=== PATIENT | male | born 1965 | race Caucasian/White ===

== ENCOUNTER 2017-08-10 11:42 | Observation (INO) | payer BC ==
[2017-08-10] VITALS (11 sets, daily range): BP systolic 138–176; BP diastolic 80–99; PULSE 52–78; RESP 16–20; TEMP 97.6–98.1; O2SAT 97–99
--- NOTE | 2017-08-10 11:59 | PD ---
HPI Chief Complaint: Chest Pain Time Seen by Provider: 11:59 Travel History International Travel<30 days: No Contact w/Intl Traveler<30days: No Traveled to known affect area: No History of Present Illness HPI 52-year-old male came to the emergency room with history of sudden onset chest pain on the right side at 8 in the morning. Pain is nonradiating and more like a pressure kind of sensation. Currently it is 3 out of 10. Patient has never had this kind of pain in the past. He seems anxious and says that when the pain did not subside he decided to come to the emergency room. History of shortness of breath or syncopal episode. Patient is not a smoker. However his father of heart attack at the age of 50 which is worrying the patient a lot. He has not had a stress test ever in the past. No aggravating or relieving factors identified. [facility] Past Medical History Narrative Medical list of his past medical, surgical, social and family history is reviewed from the nursing note. Social History Tobacco Use: Yes Allergies-Medications (Allergen,Severity, Reaction): Coded Allergies: No Known Allergies (Unverified , 08/10/17) Comments No known drug allergies. Reported Meds & Prescriptions Reported Meds & Active Scripts Active No Active Prescriptions or Reported Medications Narrative Medication Awaiting for the nurse to admit reconciliation. Review of Systems Except as stated in HPI: all other systems reviewed are Neg Physical Exam Narrative GENERAL: Awake, alert, anxious, mild distress SKIN: Focused skin assessment warm/dry. HEAD: Atraumatic. Normocephalic. EYES: Pupils equal and round. No scleral icterus. No injection or drainage. ENT: No nasal bleeding or discharge. Mucous membranes pink and moist. NECK: Trachea midline. No JVD. CARDIOVASCULAR: Regular rate and rhythm. No murmur appreciated. RESPIRATORY: No accessory muscle use. Clear to auscultation. Breath sounds equal bilaterally. GASTROINTESTINAL: Abdomen soft, non-tender, nondistended. Hepatic and splenic margins not palpable. MUSCULOSKELETAL: No obvious deformities. No clubbing. No cyanosis. No edema. NEUROLOGICAL: Awake and alert. No obvious cranial nerve deficits. Motor grossly within normal limits. Normal speech. PSYCHIATRIC: Appropriate mood and affect; insight and judgment normal. Data Data Last Documented VS Vital Signs Date Time Temp Pulse Resp B/P (MAP) Pulse Ox O2 Delivery O2 Flow Rate FiO2 08/10/17 13:30 74 138/82 (100) 97 08/10/17 12:45 16 08/10/17 12:02 Room Air 08/10/17 11:45 98.1 Orders Orders Electrocardiogram (08/10/17 11:59) Basic Metabolic Panel (Bmp) (08/10/17 11:59) Ckmb (Isoenzyme) Profile (08/10/17 11:59) Complete Blood Count With Diff (08/10/17 11:59) Magnesium (Mg) (08/10/17 11:59) Prothrombin Time / Inr (Pt) (08/10/17 11:59) Act Partial Throm Time (Ptt) (08/10/17 11:59) Troponin I (08/10/17 11:59) Chest, Single Ap (08/10/17 11:59) Ecg Monitoring (08/10/17 11:59) Bilateral Bp Monitoring (08/10/17 11:59) Iv Access Insert/Monitor (08/10/17 11:59) Oximetry (08/10/17 11:59) Oxygen Administration (08/10/17 11:59) Alprazolam (Xanax) (08/10/17 12:15) Nitroglycerin Sl (Nitrostat Sl) (08/10/17 12:15) D-Dimer (08/10/17 12:00) Aspirin Chew (Aspirin Chew) (08/10/17 12:30) CKMB (08/10/17 12:00) CKMB% (08/10/17 12:00) Admit Order (Ed Use Only) (08/10/17 13:34) Labs Laboratory Tests Test 08/10/17 12:00 White Blood Count 6.1 TH/MM3 Red Blood Count 4.06 MIL/MM3 Hemoglobin 12.9 GM/DL Hematocrit 37.0 % Mean Corpuscular Volume 91.0 FL Mean Corpuscular Hemoglobin 31.8 PG Mean Corpuscular Hemoglobin Concent 35.0 % Red Cell Distribution Width 12.9 % Platelet Count 236 TH/MM3 Mean Platelet Volume 8.3 FL Neutrophils (%) (Auto) 48.1 % Lymphocytes (%) (Auto) 37.6 % Monocytes (%) (Auto) 10.3 % Eosinophils (%) (Auto) 3.4 % Basophils (%) (Auto) 0.6 % Neutrophils # (Auto) 3.0 TH/MM3 Lymphocytes # (Auto) 2.3 TH/MM3 Monocytes # (Auto) 0.6 TH/MM3 Eosinophils # (Auto) 0.2 TH/MM3 Basophils # (Auto) 0.0 TH/MM3 CBC Comment DIFF FINAL Differential Comment Prothrombin Time 9.6 SEC Prothromb Time International Ratio 0.9 RATIO Activated Partial Thromboplast Time 24.5 SEC D-Dimer Quantitative (PE/DVT) LESS THAN 0.19 MG/L FEU Blood Urea Nitrogen 13 MG/DL Creatinine 0.84 MG/DL Random Glucose 94 MG/DL Calcium Level 9.3 MG/DL Magnesium Level 2.1 MG/DL Sodium Level 138 MEQ/L Potassium Level 3.5 MEQ/L Chloride Level 101 MEQ/L Carbon Dioxide Level 29.0 MEQ/L Anion Gap 8 MEQ/L Estimat Glomerular Filtration Rate 96 ML/MIN Total Creatine Kinase 187 U/L Creatine Kinase MB 3.8 NG/ML Troponin I LESS THAN 0.02 NG/ML MDM Medical Decision Making Medical Screen Exam Complete: Yes Emergency Medical Condition: Yes Medical Record Reviewed: Yes Interpretation(s) Twelve-lead EKG was reviewed by me. Normal sinus rhythm, normal axis, nonspecific ST-T wave changes. Heart rate of 61 bpm. Differential Diagnosis ACS, non-STEMI, PE Narrative Course 12:47 PM awaiting for the blood test result. Chest x-rays within normal limit. Patient was given 2 baby aspirin's, one sublingual nitroglycerin and Xanax for his anxiety. There is a d-dimer pending as well. If all the test results are within normal limit patient eventually will be admitted to the chest pain center to rule out ACS given the strong family history. 1:17 PM blood test results of back and within acceptable limits. Awaiting for the hospitalist to call back. Procedures EKG Prior to Arrival: No Diagnosis Primary Impression: Chest pain Qualified Codes: R07.9 - Chest pain, unspecified Admitting Information Admitting Physician Requests: Observation Scripts No Active Prescriptions or Reported Meds Dali Joy MD Aug 10, 2017 11:59
[2017-08-10] MEDS ORDERED: ALPRAZolam 0.5 MG TAB PO ONE (12:15)
[2017-08-10] MEDS ORDERED: NITROGLYCERIN 0.4 MG SL 25 TABS/BTL SL ONE (12:15)
[2017-08-10 12:17] LABS: BASOPHIL % 0.6 % (0.0-2.0); EOSINOPHIL # 0.2 TH/MM3 (0-0.4); EOSINOPHIL % 3.4 % (0.0-4.0); HEMO FLAGS DIFF FINAL; LYMPH % 37.6 % (9.0-44.0); LYMPHOCYTE # 2.3 TH/MM3 (1.0-4.8); MEAN CORPUSCULAR HEMOGLOBIN 31.8 PG (27.0-34.0); MONO % 10.3 % (0.0-8.0); NEUT % 48.1 % (16.0-70.0); PLATELET COUNT 236 TH/MM3 (150-450); RED BLOOD COUNT 4.06 MIL/MM3 (4.50-5.90); RED CELL DISTRIBUTION WIDTH 12.9 % (11.6-17.2); WHITE BLOOD COUNT 6.1 TH/MM3 (4.0-11.0)
[2017-08-10] MEDS ORDERED: ASPIRIN 81 MG CHEW TAB CHEW ONE (12:30)
--- NOTE | 2017-08-10 12:33 | RADRPT ---
EXAM DATE/TIME: 08/10/2017 12:22 [facility] COMPARISON: No previous studies available for comparison. INDICATIONS : Right side chest pain. MEDICAL HISTORY : None. SURGICAL HISTORY : None. ENCOUNTER: Initial ACUITY: 1 day PAIN SCORE: 4/10 LOCATION: Right chest FINDINGS: A single view of the chest demonstrates the lungs to be symmetrically aerated without evidence of mas s, infiltrate or effusion. The cardiomediastinal contours are unremarkable. Osseous structures are intact. CONCLUSION: No acute disease. Mike Schneider MD on August 10, 2017 at 12:31 Board Certified Radiologist. This report was verified electronically.
[2017-08-10 12:37] LABS: CHLORIDE 101 MEQ/L (98-107); POTASSIUM 3.5 MEQ/L (3.5-5.1); SODIUM (NA) 138 MEQ/L (136-145)
[2017-08-10 12:40] LABS: ANION GAP 8 MEQ/L (5-15); BLOOD UREA NITROGEN 13 MG/DL (7-18); MAGNESIUM 2.1 MG/DL (1.5-2.5)
[2017-08-10 12:44] LABS: APTT (PATIENT) 24.5 SEC (24.3-30.1); GLOMERULAR FILTRATION RATE 96 ML/MIN (>89); INTERNATIONAL NORMALIZED RATIO 0.9 RATIO; PROTHROMBIN TIME - PATIENT 9.6 SEC (9.8-11.6)
[2017-08-10 12:47] LABS: CREATINE KINASE 187 U/L (39-308)
[2017-08-10 12:59] LABS: CKMB 3.8 NG/ML (0.5-3.6)
--- NOTE | 2017-08-10 13:54 | EKG ---
Date Performed: 08/10/2017 Time Performed: 11:47:59 PTAGE: 52 years EKG: Sinus rhythm NORMAL ECG INTERPRETATION BASED ON A DEFAULT AGE OF 40 YEARS NO PREVIOUS TRACING DOCTOR: Akbar Lopez Interpretating Date/Time 08/10/2017 13:52:57
[2017-08-10] MEDS ORDERED: NITROGLYCERIN 0.4 MG SL 25 TABS/BTL SL PRN (14:00)
[2017-08-10] MEDS ORDERED: SODIUM CHLORIDE 0.9% FLUSH 10 ML FLUSH IV FLUSH PRN (14:00)
[2017-08-10] MEDS ORDERED: ALPRAZolam 0.25 MG TAB PO PRN (14:00)
--- NOTE | 2017-08-10 14:10 | HHI.HP ---
HPI Primary Care Physician Cristiano Car MD Admission Diagnosis chest pain, rule out ACS Diagnoses: Chief Complaint: Chest pain History of Present Illness This patient is a 52-year-old gentleman with a history of hyperlipidemia. He does come to the emergency room complaining of sudden 10 out of 10 right sided chest pain occurring at rest today and relieved with Xanax. Patient is very concerned that he was having a heart attack because his father who is very fit person and a high likelihood of sudden cardiac at age 50. He says the chest pain was on the right side and lasted a few minutes. It was not exertional. There is no aggravating factors that he can recall. 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 He also had an attack of sciatica recently on the left side and was prescribed hydrocodone, baclofen and gabapentin. The gabapentin was much helpful. He does drink quite a bit of vodka daily but has not had any nausea or vomiting. The patient and recommended for the chest pain Center evaluation Review of Systems Constitutional: DENIES: Diaphoretic episodes, Fatigue, Fever, Weight gain, Weight loss, Chills, Dizziness, Change in appetite, Night Sweats Endocrine: DENIES: Heat/cold intolerance, Polydipsia, Polyuria, Polyphagia Eyes: DENIES: Blurred vision, Diplopia, Eye inflammation, Eye pain, Vision loss , Photosensitivity, Double Vision Ears, nose, mouth, throat: DENIES: Tinnitus, Hearing loss, Vertigo, Nasal discharge, Oral lesions, Throat pain, Hoarseness, Ear Pain, Running Nose, Epistaxis, Sinus Pain, Toothache, Odynophagia Respiratory: DENIES: Apneas, Cough, Snoring, Wheezing, Hemoptysis, Sputum production, Shortness of breath Cardiovascular: COMPLAINS OF: Chest pain, DENIES: Palpitations, Syncope, Dyspnea on Exertion, PND, Lower Extremity Edema, Orthopnea, Claudication Gastrointestinal: DENIES: Abdominal pain, Black stools, Bloody stools, Constipation, Diarrhea, Nausea, Vomiting, Difficulty Swallowing, Anorexia Genitourinary: DENIES: Sexual dysfunction, Urinary frequency, Urinary incontinence, Urgency, Hematuria, Dysuria, Nocturia, Penile Discharge, Testicular Pain, Testicular Swelling Musculoskeletal: COMPLAINS OF: Back pain (recent sciatica), DENIES: Joint pain , Muscle aches, Stiffness, Joint Swelling, Neck pain Integumentary: DENIES: Abnormal pigmentation, Nail changes, Pruritus, Rash Immunologic/allergic: DENIES: Eczema, Urticaria Neurologic: DENIES: Abnormal gait, Headache, Localized weakness, Paresthesias, Seizures, Speech Problems, Tremor, Poor Balance Psychiatric: DENIES: Anxiety, Confusion, Mood changes, Depression, Hallucinations, Agitation, Suicidal Ideation, Homicidal Ideation, Delusions Past Family Social History Past Medical History Hyperlipidemia History of sciatica Herpes Past Surgical History Knee surgery 2 cholecystectomy Reported Medications Patient is on acyclovir and a lipid lowering agent Hydrocodone, baclofen and gabapentin recently started for sciatic Allergies: Coded Allergies: No Known Allergies (Unverified , 08/10/17) Active Ordered Medications Reviewed in the medical record. 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 SKIN: No rashes, ecchymoses or lesions. Cool and dry. HEAD: Atraumatic. Normocephalic. No temporal or scalp tenderness. EYES: Pupils equal round and reactive. Extraocular motions intact. No scleral icterus. No injection or drainage. ENT: Nose without bleeding, purulent drainage or septal hematoma. Throat without erythema, tonsillar hypertrophy or exudate. Uvula midline. Airway patent. NECK: Trachea midline. No JVD or lymphadenopathy. Supple, nontender, no meningeal signs. CARDIOVASCULAR: Regular rate and rhythm without murmurs, gallops, or rubs. RESPIRATORY: Clear to auscultation. Breath sounds equal bilaterally. No wheezes , rales, or rhonchi. GASTROINTESTINAL: Abdomen soft, non-tender, nondistended. No hepato-splenomegaly , or palpable masses. No guarding. MUSCULOSKELETAL: Extremities without clubbing, cyanosis, or edema. No joint tenderness, effusion, or edema noted. No calf tenderness. Negative Homans sign bilaterally. NEUROLOGICAL: Awake and alert. Cranial nerves II through XII intact. Motor and sensory grossly within normal limits. Five out of 5 muscle strength in all muscle groups. Normal speech. Laboratory Laboratory Tests Test 08/10/17 12:00 White Blood Count 6.1 Red Blood Count 4.06 Hemoglobin 12.9 Hematocrit 37.0 Mean Corpuscular Volume 91.0 Mean Corpuscular Hemoglobin 31.8 Mean Corpuscular Hemoglobin Concent 35.0 Red Cell Distribution Width 12.9 Platelet Count 236 Mean Platelet Volume 8.3 Neutrophils (%) (Auto) 48.1 Lymphocytes (%) (Auto) 37.6 Monocytes (%) (Auto) 10.3 Eosinophils (%) (Auto) 3.4 Basophils (%) (Auto) 0.6 Neutrophils # (Auto) 3.0 Lymphocytes # (Auto) 2.3 Monocytes # (Auto) 0.6 Eosinophils # (Auto) 0.2 Basophils # (Auto) 0.0 CBC Comment DIFF FINAL Differential Comment Prothrombin Time 9.6 Prothromb Time International Ratio 0.9 Activated Partial Thromboplast Time 24.5 D-Dimer Quantitative (PE/DVT) LESS THAN 0.19 Blood Urea Nitrogen 13 Creatinine 0.84 Random Glucose 94 Calcium Level 9.3 Magnesium Level 2.1 Sodium Level 138 Potassium Level 3.5 Chloride Level 101 Carbon Dioxide Level 29.0 Anion Gap 8 Estimat Glomerular Filtration Rate 96 Total Creatine Kinase 187 Creatine Kinase MB 3.8 Troponin I LESS THAN 0.02 Result Diagram: 08/10/17 1200 08/10/17 1200 Imaging CXR reviewed by me shows no acute cardiopulmonary disease Caprini VTE Risk Assessment Caprini VTE Risk Assessment: No/Low Risk (score <= 1) Caprini Risk Assessment Model Point Value = 1 Point Value = 2 Point Value = 3 Point Value = 5 Age 41-60 Minor surgery BMI > 25 kg/m2 Swollen legs Varicose veins or History of unexplained or recurrent spontaneous Oral contraceptives or hormone replacement Sepsis (< 1 month) Serious lung disease, including pneumonia (< 1 month) Abnormal pulmonary function Acute myocardial infarction Congestive heart failure (< 1 month) History of inflammatory bowel disease Medical patient at bed rest Age 61-74 Arthroscopic surgery Major open surgery (> 45 min) Laparoscopic surgery (> 45 min) Malignancy Confined to bed (> 72 hours) Immobilizing plaster cast Central venous access Age >= 75 History of VTE Family history of VTE Factor V Leiden Prothrombin [id number] Lupus anticoagulant Anticardiolipin antibodies Elevated serum homocysteine Heparin-induced thrombocytopenia Other congenital or acquired thrombophilia Stroke (< 1 month) Elective arthroplasty Hip, pelvis, or leg fracture Acute spinal cord injury (< 1 month) Prophylaxis Regimen Total Risk Factor Score Risk Level Prophylaxis Regimen 0-1 Low Early ambulation 2 Moderate Order ONE of the following: *Sequential Compression Device (SCD) *Heparin 5000 units SQ BID 3-4 Higher Order ONE of the following medications: *Heparin 5000 units SQ TID *Enoxaparin/Lovenox 40 mg SQ daily (WT < 150 kg, CrCl > 30 mL/min) *Enoxaparin/Lovenox 30 mg SQ daily (WT < 150 kg, CrCl > 10-29 mL/min) *Enoxaparin/Lovenox 30 mg SQ BID (WT < 150 kg, CrCl > 30 mL/min) AND/OR *Sequential Compression Device (SCD) 5 or more Highest Order ONE of the following medications: *Heparin 5000 units SQ TID (Preferred with Epidurals) *Enoxaparin/Lovenox 40 mg SQ daily (WT < 150 kg, CrCl > 30 mL/min) *Enoxaparin/Lovenox 30 mg SQ daily (WT < 150 kg, CrCl > 10-29 mL/min) *Enoxaparin/Lovenox 30 mg SQ BID (WT < 150 kg, CrCl > 30 mL/min) AND *Sequential Compression Device (SCD) Assessment and Plan Problem List: (1) Chest pain ICD Code: R07.9 - Chest pain, unspecified Status: Acute Plan: Patient is agreeable for further evaluation and chest pain center for his atypical chest discomfort. 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
[2017-08-10 14:53] LABS: CREATINE KINASE 162 U/L (39-308)
[2017-08-10 15:05] LABS: CKMB 3.4 NG/ML (0.5-3.6)
[2017-08-10 18:33] LABS: CREATINE KINASE 163 U/L (39-308)
[2017-08-10] MEDS: SODIUM CHLORIDE 0.9% FLUSH 10 ML FLUSH IV FLUSH SCH (22:23)
[2017-08-11] VITALS: BP 164/94; PULSE 67; RESP 18; TEMP 96.7; O2SAT 98
[2017-08-11 04:00] VITALS: BP 145/93; PULSE 62; RESP 16; TEMP 96.4; O2SAT 99
--- NOTE | 2017-08-11 06:03 | EKG ---
Date Performed: 08/10/2017 Time Performed: 17:54:02 PTAGE: 52 years EKG: Sinus rhythm INCOMPLETE RIGHT BUNDLE BRANCH BLOCK BORDERLINE ECG No significant change from prior electrocardiogr am. PREVIOUS TRACING : 08/10/2017 14.45 DOCTOR: Akbar Lopez Interpretating Date/Time 08/11/2017 06:03:07
--- NOTE | 2017-08-11 06:08 | EKG ---
Date Performed: 08/10/2017 Time Performed: 14:45:55 PTAGE: 52 years EKG: Sinus rhythm NORMAL ECG Compared to prior electrocardiogram, rate has increased PREVIOUS TRACING : 08/10/2017 11.47 DOCTOR: Akbar Lopez Interpretating Date/Time 08/11/2017 06:06:22
[2017-08-11 07:23] VITALS: PULSE 80
[2017-08-11 08:57] VITALS: BP 133/75; PULSE 69; RESP 18; TEMP 97.5; O2SAT 100
[2017-08-11] MEDS: SODIUM CHLORIDE 0.9% FLUSH 10 ML FLUSH IV FLUSH SCH (08:58)
[2017-08-11 10:38] VITALS: O2SAT 97
--- NOTE | 2017-08-11 11:28 | HHI.PR ---
Subjective Remarks Written by Willie Burrell, acting as scribe for Dr. Carbajal on 08/11/17 at 11 :28. Patient seen for follow-up on chest pain. Patient lying in bed, resting carefully. He is very eager to have the stress test performed. He denies any recurrent chest discomfort Objective Vitals Vital Signs Date Time Temp Pulse Resp B/P (MAP) Pulse Ox O2 Delivery O2 Flow Rate FiO2 08/11/17 10:38 97 21 08/11/17 08:57 97.5 69 18 133/75 (94) 100 08/11/17 07:23 80 08/11/17 04:00 96.4 62 16 145/93 (110) 99 08/11/17 00:00 96.7 67 18 164/94 (117) 98 08/10/17 22:05 97 21 08/10/17 20:00 97.8 60 20 165/99 (121) 97 08/10/17 20:00 62 08/10/17 18:05 97.6 08/10/17 18:04 66 08/10/17 17:38 98.0 78 16 138/92 (107) 99 08/10/17 16:43 75 16 140/95 (110) 98 Room Air 08/10/17 15:15 98 Room Air 08/10/17 15:15 74 138/80 (99) 98 Room Air 08/10/17 14:15 72 18 143/88 (106) 98 Room Air 08/10/17 13:30 74 138/82 (100) 97 08/10/17 12:45 52 16 138/82 (100) 98 08/10/17 12:02 98 Room Air 08/10/17 11:45 98.1 64 20 176/96 (122) I/O 08/10/17 08/10/17 08/10/17 08/11/17 08/11/17 08/11/17 07:00 15:00 23:00 07:00 15:00 23:00 Intake Total 720 ml Balance 720 ml Intake Oral 720 ml # Voids 1 1 1 # Bowel Movements 0 0 Result Diagram: 08/10/17 1200 08/10/17 1200 Objective Remarks GENERAL: Well-developed, well-nourished, in no acute distress. alert and orientated HEENT: Head is normocephalic without any lesions or masses noted. Facial features are symmetric. Eyes: Extraocular muscles are intact. Conjunctivae were clear. NECK: Supple without any masses. Trachea midline no deviation. No JVD, CARDIAC: Regular rhythm, regular rate. S1/S2 are heard. No murmurs gallops or rubs. LUNGS: Clear to auscultation bilaterally. No wheeze, rhonchi or rales. No use of accessory muscles on inspiration or expiration. ABDOMEN: Soft, nontender. Nondistended. Bowel sounds heard in all 4 quadrants. No organomegaly or masses. Negative rebound, negative guarding EXTREMITIES: No edema, pulses are equal bilaterally. No cyanosis or clubbing NEUROLOGY: Mood and affect appear appropriate. Cranial nerves II through XII grossly intact. Moving all extremities, speech is clear Urinary Catheter: No Vascular Central Line Catheter: No A/P Assessment and Plan Chest pain, atypical Patient with increased risk factor to include age, hyperlipidemia, history of tobacco use Patient been ruled out for acute coronary event with serial cardiac enzymes which remained negative Serial EKGs indicate incomplete right bundle branch block without any changes Awaiting nuclear stress test rule out any underlying ischemia Continue aspirin, nitroglycerin as needed DVT prevention Low risk, early ambulation Discharge Planning Discharge home in stable condition if stress test is negative Activity: Ad nikita. Diet: Regular diet Medications per medication reconciliation Follow-up primary medical doctor in one week This note was transcribed by Dr. Alisia Velasquez personally performed the history, physical exam, and medical decision making; and confirmed the accuracy of the information in the transcribed note. Authenticated by Dr. Alisia Carbajal on 08/11/17 at 11:47. Willie Burrell Aug 11, 2017 11:28 Alisia Carbajal MD Aug 11, 2017 11:47
[2017-08-11 12:00] VITALS: BP 154/86; PULSE 75; RESP 20; TEMP 98.1; O2SAT 99
[2017-08-11] MEDS ORDERED: REGADENOSON INJ 0.4 MG/5 ML SYR IV ONE (12:15)
--- NOTE | 2017-08-11 13:09 | RADRPT ---
EXAM DATE/TIME: 08/11/2017 12:09 [facility] COMPARISON: No previous studies available for comparison. INDICATIONS : Right sided chest pain with dyspnea. Angina. DOSE: 25.4 mCi Tc99m Myoview at stress. 8.5 mCi Tc99m Myoview at rest. 0.4 mg Lexiscan STRESS SYMPTOMS: Nausea. EJECTION FRACTION: 49% MEDICAL HISTORY : None SURGICAL HISTORY : Cholecystectomy. Knee surgery. ENCOUNTER: Initial ACUITY: 1 day PAIN SCALE: 8/10 LOCATION: Right chest TECHNIQUE: The patient underwent pharmacologic stress with infusion of prescribed dose. Continuous ECG tracing was monitored during stress. Gated SPECT imaging was performed after stress and conventional SPECT i maging was performed at rest. The examination was performed on a SPECT/CT scanner, both attenuation and non-corrected datasets were reviewed. FINDINGS: DISTRIBUTION: The maximum perfused segment at stress is in the anterior wall. PERFUSION STUDY: The pattern of perfusion at stress is within normal limits. GATED STUDY: There is intact wall motion and thickening without hypokinetic or dyskinetic segments. CONCLUSION: No areas of ischemia are seen. RISK CATEGORY: Low (<1% Annual Mortality Rate) Sukumar Alberto MD on August 11, 2017 at 13:04 Board Certified Radiologist. This report was verified electronically.
--- NOTE | 2017-08-11 13:48 | HHI.DCPOC ---
Discharge Care Plan Diagnosis: (1) Chest pain Your Health Problems Are: Chest Pain Goals to Promote Your Health * To prevent worsening of your condition and complications * To maintain your health at the optimal level Directions to Meet Your Goals Take your medications as prescribed Follow your dietary instruction Follow activity as directed Keep your appointments as scheduled Take your immunizations and boosters as scheduled If your symptoms worsen call your PCP, if no PCP go to Urgent Care Center or Emergency Room Smoking is Dangerous to Your Health. Avoid second hand smoke Call the 24-hour hour crisis hotline for domestic abuse at Willie Burrell Aug 11, 2017 13:48
--- NOTE | 2017-08-11 14:15 | TR ---
Date Performed: 08/11/2017 Time Performed: 12:27:10 DOCTOR: Osmin Shields DRUG LIST: CLINICAL HISTORY: CHEST PAIN REASON FOR TEST: Chest pain REASON FOR ENDING: OBSERVATION: CONCLUSION: Lexiscan stress test was performed under standard four minute protocol. Radionuclid e was injected one minute prior to ending the test. No electrocardiographic abormalities were present to suggest ischemia. Nuclear imaging and interpretation are pending. COMMENTS:
[2017-08-12] MEDS ORDERED: ASPIRIN 325 MG TAB PO SCH (09:00)
== END 2017-08-11 14:00 | disposition home or self-care (01) ==
LOC: PHED 11:42 → PHEDA 13:34 → PH5A 17:31
PROVIDERS: ADMIT Family Medicine; ATTEND Family Medicine
DX: R07.9 Chest pain, unspecified (principal); I45.10 Unspecified right bundle-branch block; R94.31 Abnormal electrocardiogram [ECG] [EKG]; E78.5 Hyperlipidemia, unspecified; F41.9 Anxiety disorder, unspecified
CPT/HCPCS: 71010; 78452; 80048; 82550; 82552; 83735; 84484; 85025; 85379; 85610; 85730; 93005; 93017; 99285; A9502; G0378; J2785